=== PATIENT | female | born 1990 | race Caucasian/White ===

== ENCOUNTER 2021-03-10 05:57 | Day surgery (SDC) | payer BC ==
[~2021-03-10 05:57] MED LIST: Lactated Ringers 1,000 ML IV SCH; Lidocaine 1%/Sod Bicarbonate in NS 8.4% 1 ML Syringe IDERM PRN; Sodium Chloride 0.9% 10 ML Syringe FLUSH PRN
[2021-03-10] MEDS ORDERED: Lidocaine 1% 30 ML SDV ONE (06:11)
[2021-03-10] MEDS ORDERED: Bupivacaine 0.25% 10 ML SDV ONE ×3 (06:11→06:31)
[2021-03-10] MEDS ORDERED: Triamcinolone Acetonide 40 MG/ML 1 ML SDV ONE (06:30)
[2021-03-10] MEDS ORDERED: Propofol 200 MG/20 ML SDV ONE (06:40)
[2021-03-10] MEDS ORDERED: Lidocaine 1% 4 ML ONE (06:40)
[2021-03-10] MEDS ORDERED: fentaNYL 100 MCG/2 ML SDV ONE (06:41)
[2021-03-10] MEDS ORDERED: Midazolam 1 MG/ML 2 ML SDV ONE (06:41)
--- NOTE | 2021-03-10 06:55 | PCM.PREANE ---
Preanesthetic Assessment - Anesthesia/Transfusion/Family Hx Anesthesia History: Prior Anesthesia Without Reaction Family History of Anesthesia Reaction: No Transfusion History: No Prior Transfusion(s) Intubation History: Unknown - Review of Systems General: No Symptoms Pulmonary: No Symptoms Cardiovascular: No Symptoms Gastrointestinal: No Symptoms Neurological: No Symptoms Other: Reports: Anxiety - Physical Assessment NPO Status Date: 03/09/21 NPO Status Time: 21:00 ASA Class: 2 Mental Status: Alert & Oriented x3 Airway Class: Mallampati = 2 Dentition: Reports: Normal Dentition Thyro-Mental Finger Breadths: 3 Mouth Opening Finger Breadths: 3 ROM/Head Extension: Full Lungs: Clear to Auscultation, Normal Respiratory Effort - Allergies Allergies/Adverse Reactions: Allergies Allergy/AdvReac Type Severity Reaction Status Date / Time No Known Allergies Allergy Verified 03/09/21 13:06 - Acknowledgements Anesthesia Type Planned: MAC Pt an Appropriate Candidate for the Planned Anesthesia: Yes Alternatives and Risks of Anesthesia Discussed w Pt/Guardian: Yes Pt/Guardian Understands and Agrees with Anesthesia Plan: Yes PreAnesthesia Questionnaire HEENT History: Reports: Impaired Vision Cardiovascular History: Reports: None Respiratory History: Reports: None Gastrointestinal History: Reports: None Genitourinary History: Reports: None CHAR FILTER TANK TENDER History: Reports: None Musculoskeletal History: Reports: None Neurological History: Reports: Head Trauma, Other (See Below) Other Neuro History: TBI Psychiatric History: Reports: Anxiety, Depression Endocrine/Metabolic History: Reports: None (insulin resistance), Other (See Below) Hematologic History: Reports: None Immunologic History: Reports: None Oncologic (Cancer) History: Reports: None Dermatologic History: Reports: None - Infectious Disease History Infectious Disease History: Reports: None - Past Surgical History Head Surgeries/Procedures: Reports: None HEENT Surgical History: Reports: Other (See Below) Other HEENT Surgeries/Procedures: SEPTOPLASTY, TURBINATE REDUCTION, ORAL SURGERY, WEARS GLASSES Cardiovascular Surgical History: Reports: None Respiratory Surgical History: Reports: None GI Surgical History: Reports: None Female Surgical History: Reports: None Male Surgical History: Reports: None Endocrine Surgical History: Reports: None Neurological Surgical History: Reports: None Musculoskeletal Surgical History: Reports: None, Other (See Below) Other Musculoskeletal Surgeries/Procedures:: RIGHT CARPAL TUNNEL RELEASE, LEFT HAND SX Oncologic Surgical History: Reports: None Dermatological Surgical History: Reports: None - SUBSTANCE USE Tobacco Use Status *Q: Current Every Day Tobacco User Recreational Drug Use History: No - HOME MEDS Home Medications: Home Meds Montelukast Sodium [Singulair] 15 mg PO DAILY 03/26/19 [History] Oxybutynin 10 mg PO DAILY 03/26/19 [History] Venlafaxine [Effexor] 150 mg PO DAILY 03/26/19 [History] Ascorbic Acid [Vitamin C] 250 mg PO DAILY 03/09/21 [History] Biotin 1 mg PO DAILY 03/09/21 [History] Fish Oil/[place]-3 Fatty Acids [Fish Oil 1,000 MG] 1 gm PO DAILY 03/09/21 [History] Hydrocodone/Acetaminophen [HYDROcodone-Acetaminophen 5-325 MG] 1 - 2 each PO Q6H PRN #6 tablet 03/09/21 [Rx] Multivitamin 1 tab PO DAILY 03/09/21 [History] Venlafaxine [Effexor] 75 mg PO DAILY 03/09/21 [History] - CURRENT (IN HOUSE) MEDS Current Meds: Current Medications Lactated Ringer's (Ringers, Lactated) 1,000 mls @ 125 mls/hr IV ASDIRECTED TARYN Lidocaine/Sodium Bicarbonate (Lidocaine 1%/Sod Bicarbonate In Ns 8.4% 1 Ml Syringe) 0.25 ml IDERM ONETIME PRN PRN Reason: Prior to IV Start Sodium Chloride (Sodium Chloride 0.9% 10 Ml Syringe) 10 ml FLUSH ASDIRECTED PRN PRN Reason: Keep Vein Open Discontinued Medications Bupivacaine HCl (Bupivacaine 0.25% 10 Ml Sdv) Confirm Administered Dose 10 ml .ROUTE .STK-MED ONE Stop: 03/10/21 06:12 Bupivacaine HCl (Bupivacaine 0.25% 10 Ml Sdv) Confirm Administered Dose 10 ml .ROUTE .STK-MED ONE Stop: 03/10/21 06:23 Bupivacaine HCl (Bupivacaine 0.25% 10 Ml Sdv) Confirm Administered Dose 10 ml .ROUTE .STK-MED ONE Stop: 03/10/21 06:32 Fentanyl (Fentanyl 100 Mcg/2 Ml Sdv) Confirm Administered Dose 100 mcg .ROUTE .STK-MED ONE Stop: 03/10/21 06:42 Lidocaine HCl (Xylocaine-Mpf 1%) Confirm Administered Dose 4 mls @ as directed .ROUTE .STK-MED ONE Stop: 03/10/21 06:41 Lidocaine HCl (Lidocaine 1% 30 Ml Sdv) Confirm Administered Dose 30 ml .ROUTE .STK-MED ONE Stop: 03/10/21 06:12 Midazolam HCl (Midazolam 1 Mg/Ml 2 Ml Sdv) Confirm Administered Dose 2 mg .ROUTE .STK-MED ONE Stop: 03/10/21 06:42 Propofol (Propofol 200 Mg/20 Ml Sdv) Confirm Administered Dose 200 mg .ROUTE .ST-MED ONE Stop: 03/10/21 06:41 Triamcinolone Acetonide (Triamcinolone Acetonide 40 Mg/Ml 1 Ml Sdv) Confirm Administered Dose 40 mg .ROUTE .STK-MED ONE Stop: 03/10/21 06:31
[2021-03-10] MEDS ORDERED: Ondansetron 4 MG/2 ML SDV ONE (07:25)
[2021-03-10] MEDS ORDERED: Ketorolac 30 MG/ML SDV ONE (07:25)
--- NOTE | 2021-03-10 07:38 | PCM48HPAN ---
Post Anesthesia Note - EVALUATION WITHIN 48HRS OF ANESTHETIC Vital Signs in Normal Range: Yes Patient Participated in Evaluation: Yes Respiratory Function Stable: Yes Airway Patent: Yes Cardiovascular Function Stable: Yes Hydration Status Stable: Yes Pain Control Satisfactory: Yes Nausea and Vomiting Control Satisfactory: Yes Mental Status Recovered: Yes
--- NOTE | 2021-03-24 07:18 | PCM.OPNOTE ---
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
--- NOTE | 2021-03-25 08:16 | OR ---
DATE OF OPERATION: 03/10/2021 SURGEON: Jac Ramachandran MD OPERATION PERFORMED: Left carpal tunnel release with left basilar thumb joint injection. 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 ANESTHESIA: Local MAC. ANESTHESIA: Cydney Camargo CRNA FIELD KILN BURNER: Lety Mccollum PA-C ESTIMATED BLOOD LOSS: 0 mL. COMPLICATIONS: None. CONDITION: Stable. DESCRIPTION OF PROCEDURE: The patient was identified in the preop holding area. Proper site was marked and identified by the surgeon. The patient was taken back to the operating theater where after adequate anesthesia, the patient's left upper extremity was sterilely prepped and draped in the usual sterile fashion. OR time-out was performed. The patient did not receive antibiotics and it is not indicated for soft tissue hand procedure. At this time, the left upper extremity was exsanguinated and an Esmarch was used as a tourniquet on the forearm. At this time, using 1% lidocaine without epinephrine and 0.25% Marcaine without epinephrine, the palmar cutaneous branch of the median nerve was anesthetized and then the incisional site was anesthetized using [place] cardinal line and ulnar border of the fourth digit as reference. Once this had set up, an incision was made. Blunt dissection was taken down to the palmar cutaneous fascia. Palmar cutaneous fascia was incised with a [place] blade. At this time, the transverse carpal ligament was identified. A small rent was made in the transverse carpal ligament with a [place] blade under direct visualization. Resection of the transverse carpal ligament was done distally using tenotomy scissors making sure to stop short of the palmar arch. At this time, attention was turned proximally after it was found to be adequately released. Using the tenotomy scissors keeping the tips ulnar to protect the palmar cutaneous branch of the median nerve, the superficial forearm fascia as well as the transverse carpal ligament were resected proximally. It was found to be adequate release both proximally and distally. At this time, adequate saline was irrigated through the wound. 4-0 nylon sutures were used closure of the skin. The patient was placed in a sterile soft dressing and sent to PACU in stable condition. After this was completed, under sterile technique, 1 mL of 40 mg Kenalog and 2 mL of 0.25% Marcaine were injected into the left basilar thumb joint. The patient tolerated all procedures well. DENISE /[id number]
== END 2021-03-10 08:10 | disposition home or self-care (01) ==
LOC: JD.SDS 05:57
PROVIDERS: ATTEND Orthopaedic Surgery
DX: G56.12 Other lesions of median nerve, left upper limb (principal); M18.12 Unilateral primary osteoarthritis of first carpometacarpal joint, left hand; F41.8 Other specified anxiety disorders; F17.210 Nicotine dependence, cigarettes, uncomplicated; Z79.899 Other long term (current) drug therapy; Z98.890 Other specified postprocedural states
CPT/HCPCS: 01810; 81025; J1885; J2250; J2405; J2704; J3010; J3301; J3490; J7120

== ENCOUNTER 2022-03-22 01:29 | Emergency (ER) | payer BC, MEDICAID ==
[2022-03-22] MEDS ORDERED: Sodium Chloride 0.9% 10 ML Syringe FLUSH PRN (02:05)
[2022-03-22] MEDS ORDERED: Ketorolac 30 MG/ML SDV IVPUSH ONE (02:05)
[2022-03-22] MEDS ORDERED: Metoclopramide 10 MG/2 ML SDV IVPUSH ONE (02:05)
[2022-03-22] MEDS ORDERED: diphenhydrAMINE 50 MG/ML SDV IVPUSH ONE (02:05)
[2022-03-22] MEDS ORDERED: Sodium Chloride 0.9% 1,000 ML IV SCH (02:15)
== END 2022-03-22 03:21 | disposition home or self-care (01) ==
LOC: JD.ED 01:29
DX: R51.9 Headache, unspecified (principal)
CPT/HCPCS: 70450; 96374; 96375; 99284; J1200; J1885; J2765; J3490; J7030

== ENCOUNTER 2022-06-04 18:13 | Emergency (ER) | payer MEDICAID ==
[2022-06-04 19:10] LABS: ESTIMATED GFR 78 mL/min (>60)
[2022-06-04] MEDS ORDERED: Sodium Chloride 0.9% 10 ML Syringe FLUSH PRN (19:36)
[2022-06-04] MEDS ORDERED: HYDROmorphone 0.5 MG/0.5 ML Syringe IVPUSH ONE (19:37)
[2022-06-04] MEDS ORDERED: Sodium Chloride 0.9% 10 ML Syringe FLUSH ONE (19:41)
[2022-06-04] MEDS ORDERED: Iopamidol 755 Mg/ML 100 ML Bottle IVPUSH ONE ×2 (19:41→19:42)
[2022-06-04] MEDS ORDERED: Sodium Chloride 0.9% 100 ML IV SCH ×2 (19:45)
[2022-06-04] MEDS ORDERED: Ondansetron 4 MG/2 ML SDV IVPUSH ONE (20:14)
[2022-06-04] MEDS ORDERED: Ketorolac 30 MG/ML SDV IVPUSH STA (21:48)
== END 2022-06-04 22:45 | disposition home or self-care (01) ==
LOC: JD.ED 18:13
DX: R07.89 Other chest pain (principal)
CPT/HCPCS: 36415; 71045; 71275; 80048; 84484; 85025; 85379; 93005; 96374; 96375; 99285; J1170; J1885; J2405; 93010; 99284

== ENCOUNTER 2022-09-02 20:32 | Emergency (ER) | payer MEDICAID | END 2022-09-02 22:55 | disposition home or self-care (01) | LOC: JD.ED 20:32 | DX: K59.00 Constipation, unspecified (principal); F17.210 Nicotine dependence, cigarettes, uncomplicated; Z79.899 Other long term (current) drug therapy | CPT/HCPCS: 36415; 74019; 74019-26; 80053; 81001; 81025; 83690; 85025; 93005; 93010; 99283; 99285 ==

== ENCOUNTER 2022-09-05 17:26 | Emergency (ER) | payer MEDICAID ==
[2022-09-05] MEDS ORDERED: HYDROmorphone 1 MG/ML Syringe IVPUSH ONE (18:11)
[2022-09-05] MEDS ORDERED: HYDROmorphone 0.5 MG/0.5 ML Syringe IVPUSH ONE (19:07)
== END 2022-09-05 19:34 | disposition home or self-care (01) ==
LOC: JD.ED 17:26
DX: K80.41 Calculus of bile duct with cholecystitis, unspecified, with obstruction (principal); Z72.0 Tobacco use
CPT/HCPCS: 36415; 80053; 82977; 85025; 86140; 96374; 96376; 99284; J1170

== ENCOUNTER 2022-09-14 12:36 | Emergency (ER) | payer MEDICAID ==
[2022-09-14] MEDS ORDERED: Sodium Chloride 0.9% 10 ML Syringe FLUSH PRN (13:04)
[2022-09-14] MEDS ORDERED: Sodium Chloride 0.9% 1,000 ML IV STA (13:59)
[2022-09-14 14:00] LABS: BASOPHILS ABSOLUTE AUTO 0.03 K/mm3 (0.01-0.08); BASOPHILS PERCENT AUTO 0.3 % (0.1-1.2); EOSINOPHILS ABSOLUTE AUTO 0.02 K/mm3 (0.04-0.36); EOSINOPHILS PERCENT AUTO 0.2 (0.7-5.8); HEMATOCRIT 44.3 % (34.1-44.9); HEMOGLOBIN 14.4 gm/dl (11.2-15.7); IMMATURE GRAN PERCENT AUTO 2.5 % (<=1.0); LYMPHOCYTES ABSOLUTE AUTO 1.61 K/mm3 (1.18-3.74); LYMPHOCYTES PERCENT AUTO 13.6 % (19.3-51.7); MEAN CORPUSCULAR HEMOGLOBIN 29.4 pg (25.6-32.2); MEAN CORPUSCULAR HGB CONC 32.5 g/dl (32.2-35.5); MEAN CORPUSCULAR VOLUME 90.4 fl (79.4-94.8); MEAN PLATELET VOLUME 11.1 fl (9.4-12.3); MONOCYTES ABSOLUTE AUTO 1.03 K/mm3 (0.24-0.36); MONOCYTES PERCENT AUTO 8.7 % (4.7-12.5); NEUTROPHILS ABSOLUTE AUTO 8.83 K/mm3 (1.56-6.13); NEUTROPHILS PERCENT AUTO 74.7 % (34.0-71.1); PLATELET COUNT,PLT 368 K/mm3 (182-369); WHITE BLOOD CELL COUNT,WBC 11.82 K/mm3 (3.98-10.04)
[2022-09-14] MEDS ORDERED: Ondansetron 4 MG/2 ML SDV IVPUSH ONE (14:00)
[2022-09-14] MEDS ORDERED: HYDROmorphone 0.5 MG/0.5 ML Syringe IVPUSH ONE ×2 (14:00→15:14)
[2022-09-14 14:09] LABS: A/G RATIO 0.8 (1-2); ALBUMIN 3.6 g/dl (3.4-5.0); ANION GAP 14.9 (5-15); BILIRUBIN TOTAL 6.2 mg/dL (0.2-1.0); BUN/CREATININE RATIO 14.4 (14-18); C-REACTIVE PROTEIN 6.3 mg/dL (<1.0); CALCIUM 9.4 mg/dL (8.5-10.1); EST CRCL DRUG DOSING (CG) 84.79 mL/min
[2022-09-14] MEDS ORDERED: Iopamidol 612 MG/ML 50 ML SDV IVPUSH ONE (14:16)
[2022-09-14 14:26] LABS: CREATININE 0.9 mg/dL (0.55-1.02); POTASSIUM,K 3.9 mEq/L (3.5-5.1); PROTEIN TOTAL,TP 8.1 g/dl (6.4-8.2)
[2022-09-14 16:44] LABS: APPEARANCE,URINE CLEAR (Clear); BILIRUBIN,URINE 3+ (Negative); COLOR,URINE AMBER (Yellow); GLUCOSE,URINE TRACE (Negative); KETONES,URINE NEGATIVE (Negative); LEUKOCYTE ESTERASE,URINE NEGATIVE (Negative); NITRITE,URINE NEGATIVE (Negative); OCCULT BLOOD,URINE 2+ (Negative); PROTEIN,URINE 1+ (Negative); UROBILINOGEN,URINE 0.2 (0.2-1.0)
[2022-09-14 16:55] LABS: AMORPHOUS SEDIMENT,URINE FEW /hpf (NOT SEEN); BACTERIA,URINE MODERATE /hpf (FEW); MUCUS,URINE FEW /hpf (FEW); WBC,URINE 0-5 /hpf (0-5)
== END 2022-09-14 16:25 ==
LOC: JD.ED 12:36
DX: K91.89 Other postprocedural complications and disorders of digestive system (principal); F17.210 Nicotine dependence, cigarettes, uncomplicated; Z79.899 Other long term (current) drug therapy
CPT/HCPCS: 36415; 74177; 74177-26; 80053; 81001; 83690; 84703; 85025; 86140; 96361; 96374; 96375; 96376; 99285-25; J1170; J2405; J3490; J7030; Q9967